=== PATIENT | male | born 1985 | race Hispanic/Latino ===

== ENCOUNTER 2023-04-18 12:03 | Emergency (ER) | payer OTHER ==
[~2023-04-18] VITALS: Ht 182.9 cm; Wt 81.6 kg
[2023-04-18 12:10] VITALS: TEMP 98.9
[2023-04-18 12:53] LABS: PLATELET COUNT 285 K/uL (142-355)
[2023-04-18 12:59] LABS: POTASSIUM 4.4 mmol/L (3.6-5.2)
[2023-04-18 14:28] VITALS: BP 117/70
== END 2023-04-18 14:31 | disposition home or self-care (01) ==
LOC: ED 12:03
PROVIDERS: Family Medicine
DX: N20.0 Calculus of kidney (principal)
CPT/HCPCS: 36415; 80053; 81002; 85027; 96361; 96365; 96375; 99284; J0696; J2270; J2405